=== PATIENT | female | born 1935 | race Caucasian/White ===

== ENCOUNTER 2024-02-13 05:10 | Emergency (ER) | payer MEDICARE ==
[2024-02-13] MEDS ORDERED: Ondansetron PF 4 MG/2 ML Vial ONE (05:26)
[2024-02-13 05:42] LABS: #Basophils 0.1 thou/uL (0.0-0.2); #Lymphocytes 1.1 thou/uL (1.20-3.40); #Monocytes 0.6 thou/uL (0.11-0.59); #Neutrophils 12.2 thou/uL (1.40-6.50); %Basophils 0.5 % (0.0-1.0); %Eosinophils 0.1 % (0.0-10.0); %Lymphocytes 7.7 % (21.0-51.0); %Monocytes 4.4 % (0.0-10.0); %Neutrophils 87.3 % (42.0-75.0); Hematocrit 40.3 % (36.0-47.0); Hemoglobin 13.1 g/dL (12.0-16.0); Mean Corpuscular HGB CONC 32.5 g/dL (32.0-36.0); Mean Corpuscular Hemoglobin 31.1 pg (27.0-31.0); Mean Corpuscular Volume 95.7 fl (78.0-98.0); Mean Platelet Volume 6.3 fL (7.4-10.4); Platelet Count 293 10x3/uL (130-400); RBC Distribution Width 13.8 % (11.5-14.5); Red Blood Cell (RBC) Count 4.21 mill/uL (4.20-5.40); White Blood Cell (WBC) Count 13.9 10x3/uL (4.8-10.8)
[2024-02-13 05:59] LABS: ALT (SGPT) 10 U/L (8-55); AST (SGOT) 12 U/L (5-34); Albumin 3.4 g/dL (3.4-4.8); Alkaline Phosphatase 74 U/L (40-110); Anion Gap 15 mmol/L (10-20); BUN (Urea Nitrogen) 12 mg/dL (9.8-20.1); Bilirubin, Total 0.5 mg/dL (0.2-1.2); Calc. Creatinine Clearance 0 mL/min (70-130); Calcium 9.8 mg/dL (7.8-10.44); Carbon Dioxide 25 mmol/L (23-31); Chloride 91 mmol/L (98-107); Estimated GFR 68; Globulin 3.3 g/dL (2.4-3.5); Glucose 164 mg/dL (83-110); Lipase 11 U/L (8-78); Potassium 4.2 mmol/L (3.5-5.1); Protein, Total 6.7 g/dL (5.8-8.1); Sodium 127 mmol/L (136-145)
[2024-02-13 06:00] LABS: Troponin I 0.015 ng/mL (< 0.028)
[2024-02-13] MEDS ORDERED: Dicyclomine 20 MG TAB ONE (06:33)
[2024-02-13] MEDS ORDERED: Promethazine HCl 25 MG/ML VIAL ONE (07:37)
[2024-02-13] MEDS ORDERED: Benzocaine 20% Spray 60 ML CAN ONE (09:15)
[2024-02-13] MEDS ORDERED: Lidocaine Viscous Sol 2% 15 ml UD Cup ONE (09:15)
[2024-02-13] MEDS ORDERED: fentaNYL 50 mcg/mL 1 mL Vial ONE (09:50)
[2024-02-13] MEDS ORDERED: Piperacillin/Tazobactam 4.5 GM VIAL ONE (09:50)
[2024-02-13] MEDS ORDERED: Sodium Chloride 0.9% 100 ML ONE (09:51)
[2024-02-13] MEDS ORDERED: Iopamidol 370 76% 100 ML VIAL ONE (15:15)
== END 2024-02-13 10:25 | disposition short-term general hospital (02) ==
LOC: BURERS 05:10
DX: K56.609 Unspecified intestinal obstruction, unspecified as to partial versus complete obstruction (principal); E87.1 Hypo-osmolality and hyponatremia
CPT/HCPCS: 71045; 74177; 80053; 83605; 83690; 83880; 84484; 85025; 93005; 94760; 96361; 96365; 96375; 99285; J2405; J2543; J2550; J3010; Q9967; 36415

== ENCOUNTER 2024-02-23 12:33 | Emergency (ER) | payer MEDICARE ==
[~2024-02-23 12:33] MED LIST: DOPamine/D5W 400 mg/250 ml PREMIX ONE
[2024-02-23 12:49] LABS: #Basophils 0.1 thou/uL (0.0-0.2); #Eosinophils 0.1 thou/uL (0.0-0.7); #Lymphocytes 3.5 thou/uL (1.20-3.40); #Monocytes 0.7 thou/uL (0.11-0.59); #Neutrophils 5.8 thou/uL (1.40-6.50); %Basophils 0.9 % (0.0-1.0); %Eosinophils 1.4 % (0.0-10.0); %Lymphocytes 34.4 % (21.0-51.0); %Monocytes 6.4 % (0.0-10.0); %Neutrophils 56.8 % (42.0-75.0); Hematocrit 30.5 % (36.0-47.0); Mean Corpuscular Hemoglobin 31.1 pg (27.0-31.0); Mean Corpuscular Volume 94.2 fl (78.0-98.0); Mean Platelet Volume 5.6 fL (7.4-10.4); Platelet Count 426 10x3/uL (130-400); RBC Distribution Width 13.6 % (11.5-14.5); Red Blood Cell (RBC) Count 3.24 mill/uL (4.20-5.40); White Blood Cell (WBC) Count 10.1 10x3/uL (4.8-10.8)
[2024-02-23] MEDS ORDERED: DOBUTamine 500 mg/250 ml 0 ML ONE (12:50)
[2024-02-23] MEDS ORDERED: Norepinephrine 4 MG/4 ML VIAL ONE ×2 (12:51→13:05)
[2024-02-23] MEDS ORDERED: Ondansetron PF 4 MG/2 ML Vial ONE (12:52)
[2024-02-23] MEDS ORDERED: Vancomycin 1 GM VIAL ONE (12:56)
[2024-02-23] MEDS ORDERED: Piperacillin/Tazobactam 3.375 GM VIAL ONE (12:56)
[2024-02-23] MEDS ORDERED: Sodium Chloride 0.9% 100 ML ONE (12:57)
[2024-02-23] MEDS ORDERED: Calcium Gluc 4.6 MEQ/10 ML (100 MG/ML) ONE (13:03)
[2024-02-23 13:08] LABS: ALT (SGPT) 16 U/L (8-55); AST (SGOT) 17 U/L (5-34); Albumin 2.7 g/dL (3.4-4.8); Alkaline Phosphatase 62 U/L (40-110); Anion Gap 19 mmol/L (10-20); BUN (Urea Nitrogen) 7 mg/dL (9.8-20.1); Bilirubin, Total 0.4 mg/dL (0.2-1.2); Calc. Creatinine Clearance 0 mL/min (70-130); Calcium 8.9 mg/dL (7.8-10.44); Carbon Dioxide 24 mmol/L (23-31); Chloride 91 mmol/L (98-107); Estimated GFR 67; Glucose 177 mg/dL (83-110); Potassium 2.8 mmol/L (3.5-5.1); Protein, Total 5.7 g/dL (5.8-8.1); Sodium 131 mmol/L (136-145); Troponin I 0.018 ng/mL (< 0.028)
[2024-02-23 13:09] LABS: Critical Call Chem-Lactate NUR.BS9@1308
[2024-02-23] MEDS ORDERED: Atropine Sulfate 1 mg/10 ml Syringe ONE (15:27)
== END 2024-02-23 13:35 | disposition short-term general hospital (02) ==
LOC: BURERS 12:33
DX: I95.89 Other hypotension (principal); A41.9 Sepsis, unspecified organism; R00.1 Bradycardia, unspecified; R41.82 Altered mental status, unspecified; I10 Essential (primary) hypertension
CPT/HCPCS: 80053; 83605; 84484; 85025; 87040; 93005; 96365; 96375; J0461; J0612; J1250; J1265; J2405; J2543; J3370